=== PATIENT | female | born 1965 | race Caucasian/White ===

== ENCOUNTER 2024-11-07 09:46 | Inpatient (IN) | payer BC, SELFPAY ==
[2024-11-07 10:09] LABS: #Basophils 0.04 10x3/uL (0.0-0.2); #Eosinophils 0.07 10x3/uL (0.0-0.7); #Monocytes 0.68 10x3/uL (0.11-0.59); #Neutrophils 3.98 10x3/uL (1.40-6.50); %Basophils 0.5 % (0.0-1.0); %Eosinophils 0.9 % (0.0-10.0); %Lymphocytes 37.7 % (21.0-51.0); %Monocytes 8.8 % (0.0-10.0); %Neutrophils 51.7 % (42.0-75.0); Hematocrit 43.9 % (36.0-47.0); Hemoglobin 14.5 g/dL (12.0-16.0); Mean Corpuscular Hemoglobin 28.0 pg (27.0-31.0); Mean Corpuscular Volume 84.9 fL (78.0-98.0); Platelet Count 211 10x3/uL (130-400); Red Blood Cell (RBC) Count 5.17 mill/uL (4.20-5.40); White Blood Cell (WBC) Count 7.71 10x3/uL (4.8-10.8)
[2024-11-07 10:23] LABS: ALT (SGPT) 22 U/L (Less than 34); AST (SGOT) 30 U/L (11-34); Albumin 4.4 g/dL (3.1-4.5); Alkaline Phosphatase 76 U/L (40-110); Anion Gap 14 mmol/L (10-20); BUN (Urea Nitrogen) 11 mg/dL (9.8-20.1); Bilirubin, Total 0.8 mg/dL (0.3-1.2); Calc. Creatinine Clearance 0 mL/min (70-130); Calcium 9.5 mg/dL (7.8-10.44); Carbon Dioxide 27 mmol/L (22-29); Chloride 103 mmol/L (98-107); Globulin 2.3 g/dL (2.4-3.5); Glucose 147 mg/dL (70-105); Potassium 3.4 mmol/L (3.5-5.1); Sodium 141 mmol/L (136-145)
[2024-11-07] MEDS ORDERED: Enoxaparin 40 MG (0.4 mL) SYRINGE ONE (11:09)
[2024-11-07] MEDS ORDERED: Enoxaparin 30 MG (0.3 mL) SYRINGE ONE (11:09)
[2024-11-07 12:35] VITALS: BMI 27.3
[2024-11-07] MEDS: Metoprolol Tartrate 5 MG (5 mL) VIAL IVP SCH (13:53)
[2024-11-07] MEDS: TICAGRELOR 90 MG TABLET PO SCH ×2 (13:53→14:57)
[2024-11-07] MEDS: Nitroglycerin 2% Ointment 1 INCH/1 GM Packet TOP SCH (13:53)
[2024-11-07] MEDS: Citalopram 20 MG TAB PO SCH (20:49)
[2024-11-07] MEDS: Enoxaparin 80 MG (0.8 mL) SYRINGE SC SCH (20:50)
[2024-11-07] MEDS ORDERED: Communication Order-Pharmacy FS SCH (21:00)
[2024-11-07] MEDS ORDERED: TICAGRELOR 90 MG TABLET PO SCH ×2 (21:00)
[2024-11-07] MEDS ORDERED: Enoxaparin 60 MG (0.6 mL) SYRINGE SC SCH (21:00)
[2024-11-08 06:06] LABS: Cardiac Risk 2.8 (Less than 4.5); Cholesterol 101.0 mg/dl (< 200 Desired); HDL Cholesterol 36.0 mg/dL (>60 Neg Risk); LDL Cholesterol, Calculated 51.0 mg/dL; Triglycerides 69.0 mg/dL (Less than 150)
[2024-11-08] MEDS: Aspirin Chewable 81 MG TAB PO SCH (08:47)
[2024-11-09] MEDS ORDERED: EPINEPHrine 1 MG/10 ML Abboject SYRINGE ONE (17:38)
[2024-11-09] MEDS ORDERED: Adenosine 6 mg (2 mL) VIAL ONE (17:38)
[2024-11-09] MEDS ORDERED: Heparin 10,000 UNITS/ 10 ML VIAL ONE (17:38)
[2024-11-09] MEDS ORDERED: PHENYLEPHRINE-NS 100 MCG/ML 10 ML SYRINGE ONE (17:39)
[2024-11-09] MEDS ORDERED: Nitroglycerin 50 MG/250 ML BOT 250 ML ONE (17:39)
[2024-11-09] MEDS ORDERED: Lidocaine 1% (PF) 30 ML VIAL ONE (18:08)
[2024-11-09] MEDS ORDERED: Acetaminophen/Codeine 30-300mg Tablet PO PRN ×2 (19:54)
[2024-11-10 12:45] VITALS: BP 128/75; TEMP 98.8
== END 2024-11-10 12:46 | disposition home or self-care (01) | DRG 287 ==
LOC: ERS 09:46 → 2NO 10:55
PROVIDERS: ADMIT Family Medicine; ATTEND Internal Medicine
PROC: 3E033XZ Introduction of Vasopressor into Peripheral Vein, Percutaneous Approach (ICD-10-PCS; principal; 2024-11-09)
PROC: B2111ZZ Fluoroscopy of Multiple Coronary Arteries using Low Osmolar Contrast (ICD-10-PCS; 2024-11-09)
DX: I20.1 Angina pectoris with documented spasm (principal); E03.9 Hypothyroidism, unspecified; F32.A Depression, unspecified; G47.00 Insomnia, unspecified; Z88.0 Allergy status to penicillin; G47.33 Obstructive sleep apnea (adult) (pediatric); Z98.890 Other specified postprocedural states; E87.6 Hypokalemia; R73.9 Hyperglycemia, unspecified; Z98.51 Tubal ligation status; E78.00 Pure hypercholesterolemia, unspecified; Z79.899 Other long term (current) drug therapy; Z79.890 Hormone replacement therapy; I25.2 Old myocardial infarction; Z90.49 Acquired absence of other specified parts of digestive tract; Z98.891 History of uterine scar from previous surgery; Z90.711 Acquired absence of uterus with remaining cervical stump; I10 Essential (primary) hypertension; Z79.82 Long term (current) use of aspirin
CPT/HCPCS: 36415; 71045; 80053; 80061; 83036; 83880; 84443; 84484; 85025; 93005; 93306; 93798; 94760; 96372; 97139; 99285; C1769; C1894; J0153; J0165; J0461; J1644; J1650; J2250; J3010